=== PATIENT | male | born 1980 | race Caucasian/White ===

== ENCOUNTER 2023-12-31 11:59 | Emergency (ER) | payer SELFPAY ==
--- NOTE | ~2023-12-31 | XR_ITS ---
EXAMINATION: XR chest 2V 12/31/2023 13:00 INDICATION: Left arm pain PROCEDURE: 2 view chest COMPARISON: 09/12/2017 FINDINGS: The lungs are clear. The cardiomediastinal silhouette is within normal limits. There are no pleural effusions. There is no pneumothorax suspected. There is a prominent left nipple shadow. IMPRESSION: 1: NO ACUTE CARDIOPULMONARY DISEASE. Reviewed, dictated and finalized at location B.
[2023-12-31 12:13] VITALS: BP 117/83; PULSE 88; RESP 16; TEMP 36.4; O2SAT 100
--- NOTE | 2023-12-31 13:02 | ED.SKABFB ---
HPI - Skin/Abscess/Foreign Bdy General Chief complaint: Skin/Abscess/Foreign Body Stated complaint: spider bite /shortness of breath Time Seen by Provider: 12/31/23 12:28 History of Present Illness HPI narrative: 43-year-old male presents to the emergency room for multiple medical problems. Patient states 3 days ago he was rehabbing his an abandoned house, who was exposed to dust he, began developing shortness of breath. Patient also states he developed suspected skin infection to his left middle finger. Patient states that he thinks he might be a spider bite. Patient denies seeing a spider bite him, or a spider in the area. Related Data Allergies Allergy/AdvReac Type Severity Reaction Status Date / Time No Known Allergies Allergy Verified 12/31/23 12:27 Review of Systems Review of Systems: ROS unremarkable except for noted in HPI Exam Narrative: GENERAL: Well-appearing, well-nourished, no physical limitations, and in no acute distress. HEAD: Normocephalic, atraumatic. EYES: Conjunctivae normal, PERRLA and EOMI. CHEST: Clear to auscultation. No respiratory distress. No wheezes rales or rhonchi. HEART: Regular rate and rhythm. No murmur heard. Normal peripheral pulses. ABDOMEN: Soft, nontender, nondistended, normal active bowel sounds. EXTREMITIES: Normal range of motion. No edema. No clubbing or cyanosis SKIN: left middle finger: ulceration to medial side with surrounding erythema and STS NEURO: No focal deficits. Alert and oriented x3. MAEW. CN's II-XI intact bilaterally, normal gait PSYCH: Cooperative. Normal mood and affect. Course Vital Signs Vital signs: Vital Signs Temperature 36.4 C L 12/31/23 12:13 Pulse Rate 88 12/31/23 12:13 Respiratory Rate 16 12/31/23 12:13 Blood Pressure 117/83 12/31/23 12:13 Pulse Oximetry 100 12/31/23 12:13 Oxygen Delivery Room Air 12/31/23 12:13 Temperature 36.4 C L 12/31/23 12:13 Pulse Rate 88 12/31/23 12:13 Respiratory Rate 16 12/31/23 12:13 Blood Pressure 117/83 12/31/23 12:13 Pulse Oximetry 100 12/31/23 12:13 Oxygen Delivery Room Air 12/31/23 12:13 Discharge Plan Discharge Clinical Impression: Abscess of skin or subcutaneous tissue, Breath shortness Patient Disposition: Home, Self-Care Condition: Stable Instructions: Antibiotic Form, Abscess (ED) Prescriptions: New clindamycin HCl 300 mg capsule 300 mg PO TID Qty: 21 0RF albuterol sulfate 90 mcg/actuation HFA aerosol inhaler 1 inh inhalation QID Qty: 8.5 0RF Follow-up/Referrals: PHYSICIAN,BINDER STRIPPER MACHINE [Non-Staff] - Time of Disposition: 13:27
[2023-12-31] MEDS: NAPROXEN 500 MG TABLET PO (13:46)
[2023-12-31 13:48] VITALS: BP 134/76; PULSE 76; RESP 18; O2SAT 98
== END 2023-12-31 13:50 | disposition home or self-care (01) ==
PROVIDERS: Emergency Provider Nurse Practitioner Family
DX: R06.02 Shortness of breath (principal); L02.512 Cutaneous abscess of left hand
CPT/HCPCS: 71046; 99283; A9270

== ENCOUNTER 2025-05-06 08:33 | Emergency (ER) | payer SELFPAY ==
--- OUTSIDE RECORDS SUMMARY | 2025-05-03 05:00 | XMS_ITS ---
Author Organization Count includes the [facility] Address [address] [place] [address] Care Team Providers Care Supervisor Records Change Name Role Phone Rosette Yobani Primary Care Provider [phone] Carmenza Cavanaugh Unavailable [phone] REASON FOR VISIT MRU aT Social History Tobacco Use: Social History Observation Description Date Details (start date - stop date) Current Smoker NA - NA PRAPARE Question Answer Notes Date Completed/Updated: 05/03/2025 What is your current housing situation? I have h ousing Are you worried about losing your housing? No What is the highest level of school that you have finished? 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 Check all that apply Utilities Has lack of transportation k ept you from medical appointments, meetings, work or from getting things needed for daily living? Yes, it has kept me from medical appointments or from getting my medications,Yes, it has kept me from non-medical meetings, appointments, work, or getting things needed for daily living How often do you see or talk to people that you care about and feel close to? (For example: talking to friends on the phone, visiting friends or family, going to protestant or club meetings) More than 5 times a week How stressed are you? Stress is when someone feels tense, nervous, anxious, or can\t sleep at night because their mind is troubled Quite a bit In the past year have you sp ent more than 2 nights in a row in a half-way, jail, mcfp center, or juvenile correctional facility? No Are you a refugee? I choose not to answer this q uestion What country are you from? I choose not to answe r this question Do you feel physically and e motionally safe where you currently live? Yes In the past year, have you b een afraid of your partner or ex-partner? No PRAPARE Score: 8 Enabling Services Provided? Yes Please specify Case Management Assessment First Visit Tobacco Control (Standard) Question Answer Notes Tobacco use: Current smoker How often do you smoke cigarettes? Every day How many cigarettes a day do you smoke? 11-20 Problems Problem Type SNOMED Code ICD Code Onset Dates Problem Status W/U Status Risk Notes Problem Substance abuse (0124260433) Substance abuse (F19.10) Active confirmed Encounters Encounter Location Date Provider Diagnosis [facility] [address] [place] [address] 05/03/2025 Carmenza Cavanaugh Substance abuse F19.10 Assessments Encounter Date Diagnosis (ICD Code) Assessment Notes Treatment Notes Treatment Clinical Notes Section Notes 05/03/2025 Substance abuse (ICD-10 - F19.10) 05/03/2025 Other Clinician met w ith client to assess needs for residential services. Clinician gathered information regarding historical presentation of mental health and substance use symptoms including withdrawal, HIV Risk assessment, psychiatric hospitalization history and presenting concern. Clinician conducted PHQ9 and CSSRS assessments as well as social drivers of health screening for the purposes of identifying additional service needs. Plan Of Treatment Treatment Notes Assessment Notes Other Clinician met with keyur romero to assess needs for residential services. Clinician gathered information regarding historical presentation of mental health and substance use symptoms including withdrawal, HIV Risk assessment, psychiatric hospitalization history and presenting concern. Clinician conducted PHQ9 and CSSRS assessments as well as social drivers of health screening for the purposes of identifying additional service needs. Next Appt Details Follow Up: prn, Reason: Provider Name:Yobani castano, 05/06/2025 02:00:00 PM, [address], [place], [address], Progress Notes * Isaac BARBADOB: [birth year] (44 yo M)Acc No.[id number]:05/03/2025 UNLOCKED PROGRESS NOTE Patient: Isaac KRAMER Provider: Nicole Cavanaugh :1980 A ge:44 Y S ex:Male Date:05/03/2025 Address:[address] [id number] Pcp:Yobnai Dinero Structured Data:Is there a n taco you would prefer we call you? (Nombre que prefiere usar) : No Subjective: * Chief Complaints: * 1 . MRU aTBC. * HPI: P sychiatric Assessment - Current Symptoms: Primary concern today A dmitting today for [facility] day [facility]. O [place] of Mental Health Symptoms C nick reported he has been on ADHD medication but no longer takes this medication. Client is unsure if he has experienced other mental health concerns . H istory of Psychiatric Hospitalizations N one reported at this time . H istory of Psychiatric and Behavioral Health Treatment C nick reported he used to take medication for ADHD, but he no longer takes the medication . S ubstance Use: Current Use Patterns C nick reported he is using substances 2-3 times a day. P rimary Substance Used M eth and marajuana. H istory of substance use C nick reported he has been using substances every day for abotu 8 years. H x of Withdrawal C nick reported he thinks he felt symptoms of withdrawal the most recent time he stopped using - reported experiencing some depressive symptoms, stomach aches, and headaches. A ssessment of Social Determinants of Health::: Has A PRAPARE Been Completed In The Past Year? H as a PRAPARE Been Completed In The Past Year? Y es, W as It Completed Today Using [email or web address]? Y es.? a TBC For Substance Use Services: Who Is Your Primary Care Provider? D o You Have A Primary Care Provider? N o, D ate of last physical exam . D o You Have A Psychiatric Provider? D o You Have A Psychiatric Provider? N o. D o You Have Any Other Professional Supports? D o You Have Any Other Professional Supports N o. C onsent Forms Completed?Consent Forms N one Needed at this time. D epression Screening: PHQ-9 L ittle interest or pleasure in doing things S everal days, F eeling down, depressed, or hopeless N ot at all, T rouble falling or staying asleep, or sleeping too much M ore than half the days, F eeling tired or having little energy M ore than half the days, P oor appetite or overeating M ore than half the days,?Feeling bad about yourself or that you are a failure, or have let yourself or your family down More than half the days, T rouble concentrating on things, such as reading the newspaper or watching television M ore than half the days, M oving or speaking so slowly that other people could have noticed; or the opposite, being so fidgety or restless that you have been moving around a lot more than usual M ore than half the days, T houghts that you would be better off or of hurting yourself in some way M ore than half the days (Consider Suicide Assessment Risk).?Intervention D epression Screening Findings P ositive, F ollow-Up for Depression Patient is admitted to a [facility] unit where their mental health is monitored - unit nursing staff have access to this encounter note. S creening: [place] Suicide Severity Rating Scale (LF) D o you want to initiate with S creener form, 1 . Wish to be : Have you wished you were or wished you could go to sleep and not wake up? Y es, 2 . Suicidal Thoughts: Have you actually had any thoughts of killing yourself? N o, 6 . Suicide Behavior Question: Have you ever done anything,started to do anything, or prepared to end your life? N o, I nterpretation: M oderate Risk. C SSRS Interpretation and Follow Up Plan: CSSRS Interpretation and Follow Up Plan C SSRS Screen documented using SF Y es, R isk Disposition from SF M oderate - Follow Up Plan required, F ollow Up Plan M oderate/High: Patient risk further assessed by Behavioral Health GOLF BALL MARKER or Clinician, no warm hand off needed at this time Client is admitted to the CRU unit where they will be routinely screened for SI and risk., T imeframe of Screening Marcelle anderson. * Medical History: * Social History: S ocial Determinants: Nicole Hunter ate Completed/Updated: 07/03/2024, W hat is your current housing situation? I have housing, A re you worried about losing your housing? N o, W hat is the highest level of school that you have finished? 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 Check all that apply U tilities, H as lack of transportation kept you from medical appointments, meetings, work or from getting things needed for daily living? Y es, it has kept me from medical appointments or from getting my medications,Yes, it has kept me from non-medical meetings, appointments, work, or getting things needed for daily living, H ow often do you see or talk to people that you care about and feel close to? (For example: talking to friends on the phone, visiting friends or family, going to protestant or club meetings) M ore than 5 times a week, H ow stressed are you? Stress is when someone feels tense, nervous, anxious, or can\t sleep at night because their mind is troubled Q uite a bit, I n the past year have you spent more than 2 nights in a row in a half-way, jail, mcfp center, or juvenile correctional facility? N o, A re you a refugee? I choose not to answer this question, W hat country are you from? I choose not to answer this question, D o you feel physically and emotionally safe where you currently live? Yes, I n the past year, have you been afraid of your partner or ex-partner? N o, P RAPARE Score: 8 , E nabling Services Provided? Y es, P lease specify C ase Management Assessment First Visit. T obacco Use: T obacco Control (Standard) T obacco use: C urrent smoker, H ow often do you smoke cigarettes? E very day, H ow many cigarettes a day do you smoke? 1 -20. Objective: * Vitals: * Examination: M ental Status Exam: ATTENTION AND CONCENTRATION N o deficits. APPEARANCE A ppropriate. ATTITUDE AND BEHAVIOR C ooperative. EYE CONTACT G ood. AFFECT C ongruent with reported mood. MOOD E uthymic. INSIGHT F air. JUDGMENT F air. Assessment: * Assessment: 1. S ubstance abuse - F19.10 (Primary) Plan: * Treatment: * Procedure Codes: 9 0791 PSYCH DIAGNOSTIC EVALUATION, Modifiers: AJ , [facility] Service * Preventive Medicine: Counseling: S MOKING: Nicole currie counselled on the dangers of tobacco use and urged to quit. 07/03/2024 .. * Follow Up: p rn * * Electronic signature of Chriss Cavanaugh on 05/06/2025 at 08:36 AM VEGETABLE CUTTER Sign off status: Pending * Provider: Nicole Cavanaugh Date: 07/03/2024 Generated for Carlie oliveira/Jose/Donald on: 07/06/2024 08:36 AM VEGETABLE CUTTER History and Physical Notes * HPI (History of Present Illness) Category Sub-Category Detail Notes Category Not es Depression Screening PHQ-9 Little inte rest or pleasure in doing things: Several days Feeling down, depressed, or hopeless: No t at all Trouble falling or staying a sleep, or sleeping too much: More than half the days Feeling tired or having little energy: M ore than half the days Poor appetite or overeating: More than h fdc the days Feeling bad about yourself o r that you are a failure, or have let yourself or your family down: More than half the days Trouble concentrating on thi ngs, such as reading the newspaper or watching television: More than half the days Moving or speaking so slowly that other people could have noticed; or the opposite, being so fidgety or restless that you have been moving around a lot more than usual: More than half the days Thoughts that you would be b shilo off or of hurting yourself in some way: More than half the days (Consider Suicide Assessment Risk) Intervention Depression Screening Findings: P ositive Follow-Up for Depression: Kamari berrios is admitted to a [facility] unit where their mental health is monitored - unit nursing staff have access to this encounter note Psychiatric Assessment - Current Symptoms Primary concern today Admitting today for [facility] 28 day program Overview of Mental Health Symptoms Clien t reported he has been on ADHD medication but no longer takes this medication. Client is unsure if he has experienced other mental health concerns History of Psychiatric Hospitalizations None reported at this time History of Psychiatric and B ehavioral Health Treatment Client reported he used to take medicati on for ADHD, but he no longer takes the medication Substance Use History of substance use Client reported he has been using substances every day for abotu 8 years Hx of Withdrawal Client reported he t hinks he felt symptoms of withdrawal the most recent time he stopped using - reported experiencing some depressive symptoms, stomach aches, and headaches Primary Substance Used Meth and marajuan a Current Use Patterns Client reported he is using substances 2-3 times a day Screening [place] Suicide Sev erity Rating Scale (LF) Do you want to initiate with: Screener form 1. Wish to be : Have you wished you were or wished you could go to sleep and not wake up?: Yes 2. Suicidal Thoughts: Have you actually had any thoughts of killing yourself?: No 6. Suicide Behavior Question: Have you ever done anything,started to do anything, or prepared to end your life?: No Interpretation:: Moderate Risk Assessment of Social Determinants of Health:: Has A PRAPARE Been Completed In The Past Year? Has a PRAPARE Been Completed In The Past Year?: Yes Was It Completed Today Using SmartForm?: Yes aT For Substance Use Services Who Is Your Primary Care Provider? Do You Have A Primary Care Provider?: No Date of last physical exam: Do You Have A Psychiatric Provider? Do You Have A Psychiatric Provider?: No Do You Have Any Other Profes sional Supports? Do You Have Any Other Professional Supports: No Consent Forms Completed Consent Forms: None Need ed at this time CSSRS Interpretation and Follow Up Plan CSSRS Interpretation and Follow Up Plan CSSRS Screen documented using SF: Yes Risk Disposition from SF: Mo derate - Follow Up Plan required Follow Up Plan: Moderate/Hig h: Patient risk further assessed by Behavioral Health GOLF BALL MARKER or Clinician, no warm hand off needed at this time Client is admitted to the CRU unit where they will be routinely screened for SI and risk. Timeframe of Screening: Today Examination Category Sub-Category Detail Notes Category Not es Mental Status Exam ATTENTION AND CONCENTRATION No defi cits APPEARANCE Appropriate ATTITUDE AND BEHAVIOR Cooperative EYE CONTACT Good AFFECT Congruent with repor anne marie mood MOOD Euthymic INSIGHT Fair JUDGMENT Fair
--- OUTSIDE RECORDS SUMMARY | 2025-05-05 08:40 | XMS_ITS ---
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 and Pre vention Guidelines: * S marcos Zhou ast Done N ext Due A ction Taken N ONCOMPLIANT H IV screening - 1 07/05/2024 - - * Preventive Medicine: Counseling: S CARMEL: Nicole currie counselled on the dangers of tobacco use and urged to quit. 1 07/05/2024 .. * Follow Up: 2 Weeks * * Electronic signature of Vdial Carroll on 05/06/2025 at 08:36 AM REFUSE COLLECTOR Sign off status: Pending * Provider: Monica Carroll APN Date: 07/05/2024 Generated for Carlie oliveira/Jose/Beverlyransmitting on: 07/06/2024 08:36 AM REFUSE COLLECTOR History and Physical Notes * HPI (History of Present Illness) Category Sub-Category Detail Notes Category Not es Depression Screening PHQ-9 Little inte rest or pleasure in doing things: Several days Feeling down, depressed, or hopeless: Mo re than half the days Trouble falling or staying asleep, or sl eeping too much: Several days Feeling tired or having little energy: S everal days Poor appetite or overeating: More than h myrna the days Feeling bad about yourself o r that you are a failure, or have let yourself or your family down: Several days Trouble concentrating on thi ngs, such as reading the newspaper or watching television: Several days Moving or speaking so slowly that other people could have noticed; or the opposite, being so fidgety or restless that you have been moving around a lot more than usual: Several days Thoughts that you would be b shilo off or of hurting yourself in some way: Several days (Consider Suicide Assessment Risk) Total Score: 11 Interpretation: Moderate Depression Intervention Depression Screening Findings: P ositive Follow-Up for Depression: No Referral necessary, patient involved in behavioral health treatment . ROXANA-7 Screening 1. Feeling nervous, anxious, or on edg e :, Several days-1 2. Not being able to stop or control wor rying :, Several days-1 3. Worrying too much about different thi ngs :, Several days-1 4. Trouble sleeping/relaxing :, Several days-1 5. Being so restless that it is hard to sit still :, Several days-1 6. Becoming easily annoyed or irritable :, Several days-1 7. Feeling afraid, as if something awful might happen :, Several days-1 ROXANA-7 Score Total score:: 7 Interpretation: 5-9: Mild Anxiety Screening [place] Suicide Sev erity Rating Scale (LF) Do [...] prepared to end your life?: No Interpretation:: Low Risk Mood Disorder Questionnaire 22- Questions Please answer each question to the best of your ability.: Has there ever been a time period when you were not your usual self and... You felt so good or hyper th at other people thought you were not your normal self or you were so hyper that you got into trouble?: No . You were so irritable that y ou shouted at people or started fights or arguments?: No . You got much less sleep than usual and found that you didn't really miss it?: Yes . You felt much more self-confident than u sual?: No . You were more talkative or spoke much fa ster than usual?: No . Thoughts raced through your head or you couldn't slow your mind down?: No . You were so easily distracte d by things around you that you had trouble concentrating or staying on track?: No . You had more energy than usual?: No . You were more active or did many more th ings than usual?: No . You were more social or outg oing than usual, for example, you telephoned friends in the middle of the night?: No . You were more interested in sex than usu al?: No . You did things that were usu al for you or that other people might have thought were excessive, foolish, or risky?: No . Spending money got you or your family in trouble?: No . If you checked YES to more t leal one of the above, have several of these ever happened during the same period of time?: No . How much of a problem did an y of these cause you - like being unable to work; having family, money or legal troubles; getting into arguments or fights?: No problems . Preventative Health and Wellness follow-up . CSSRS Interpretation and Follow Up Plan CSSRS Interpretation and Follow Up Plan CSSRS Screen documented using SF: Yes Risk Disposition from SF: Low - No Follo w Up Plan Required Follow Up Plan: No Follow Up Plan requir ed at this time. Timeframe of Screening: Today Examination Category Sub-Category Detail Notes Category Not es Mental Status Exam SENSORIUM AND COGNITION Alert , Oriented to Person, Oriented to Place, Oriented to Time, Oriented to Situation ATTENTION AND CONCENTRATION No deficits APPEARANCE Phone interview - un able to determine appearance. ATTITUDE AND BEHAVIOR Cooperative, Aircraft Accessories Mechanic tive MEMORY Immediate, Recent, R emote EYE CONTACT Phone interview AFFECT Phone interview-unab le to assess MOOD Euthymic SPEECH QUANTITY Appropriate SPEECH QUALITY Appropriate volume THOUGHT PROCESS Coherent and goal di rected THOUGHT CONTENT Appropriate - WNL, N o evidence of delusional content MOTOR ACTIVITY Phone interview SUICIDAL IDEATION Denies suicidal idea tion HOMICIDAL IDEATION Denies homicidal michaela ation HALLUCINATIONS Denies hallucination s INSIGHT Fair JUDGMENT Fair LANGUAGE Appropriate- WNL Consultation Request Notes Referral Date Referring Provider Referred Provider Not es 05/05/2025 Virgie Carroll , Therapy- ELY an d depression
--- OUTSIDE RECORDS SUMMARY | 2025-05-06 08:36 | XMS_ITS | Patient Health Record ---
Author Organization [facility] Address [address] [place] [address] Care Team Providers Care Dehydrogenation Supervisor Name Role Phone Yobani Dinero Primary Care Provider Prem Tillman Unavailable [phone] MaoCarmenza moreno Unavailable [phone] GlenVirgie galvez Unavailable [phone] Allergies No Known Allergies Results Component Value Reference Range Notes Breathalyzer Reviewed date:05/03/2025 03:30:27 PM Interpretation: Performing Lab: Notes/Report: LACEY 0.000 QuantiFERON-TB Gold Plus ([id number]) (Not yet reviewed by provider) Interpretation: Performing Lab:[facility] [place], [address], Phone - [phone], Director - Geeta Notes/Report: QuantiFERON Incubation Incubation performed. QuantiFERON-TB Gold Plus Negative Negative No response to M tuberculosis antigens detected. Infection with M tuberculosis is unlikely, but high risk individuals should be considered for additional testing (ATS/IDSA/CDC Clinical Practice Guidelines, 2017). The reference range is an Antigen minus Nil result of <0.35 IU/mL. Chemiluminescence immunoassay methodology QuantiFERON Criteria QuantiFERON-TB Gold Plus is a qualitative indirect test for M tuberculosis infection (including disease) and is intended for use in conjunction with risk assessment, radiography, and other medical and diagnostic evaluations. The QuantiFERON-TB Gold Plus result is determined by subtracting the Nil value from either TB antigen (Ag) value. The Mitogen tube serves as a control for the test. QuantiFERON TB1 Ag Value 0.04 QuantiFERON TB2 Ag Value 0.03 QuantiFERON Nil Value 0.04 QuantiFERON Mitogen Value >10.00 CMP 14 Comprehensive Metabol ic Panel* (Not yet reviewed by provider) Interpretation: Performing Lab:[facility], [address], Phone - [phone], Director - Geeta Notes/Report: Glucose 96 70-99 mg/dL BUN 22 6-24 mg/dL Creatinine 1.07 0.76-1.27 mg/dL eGFR 88 >59 mL/min/1.73 BUN/Creatinine Ratio 21 9-20 Sodium 141 134-144 mmol/L Potassium 4.4 3.5-5.2 mmol/L Chloride 104 96-106 mmol/L Carbon Dioxide, Total 23 20-29 mmol/L Calcium 9.5 8.7-10.2 mg/dL Protein, Total 6.6 6.0-8.5 g/dL Albumin 4.1 4.1-5.1 g/dL Globulin, Total 2.5 1.5-4.5 g/dL Bilirubin, Total 0.4 0.0-1.2 mg/dL Alkaline Phosphatase 82 47-123 IU/L AST (SGOT) 29 0-40 IU/L ALT (SGPT) 24 0-44 IU/L CBC With Differential/Platel et* (Not yet reviewed by provider) Interpretation: Performing Lab:[facility] [place], [address], Phone - [phone], Director - Geeta Notes/Report: WBC 8.4 3.4-10.8 x10E3/uL RBC 4.83 4.14-5.80 x10E6/uL Hemoglobin 14.1 13.0-17.7 g/dL Hematocrit 44.4 37.5-51.0 % MCV 92 79-97 fL MCH 29.2 26.6-33.0 pg MCHC 31.8 31.5-35.7 g/dL RDW 12.4 11.6-15.4 % Platelets 353 150-450 x10E3/uL Neutrophils 58 Not Estab. % Lymphs 29 Not Estab. % Monocytes 9 Not Estab. % Eos 3 Not Estab. % Basos 1 Not Estab. % Neutrophils (Absolute) 4.8 1.4-7.0 x10E3/uL Lymphs (Absolute) 2.4 0.7-3.1 x10E3/uL Monocytes(Absolute) 0.8 0.1-0.9 x10E3/uL Eos (Absolute) 0.3 0.0-0.4 x10E3/uL Baso (Absolute) 0.1 0.0-0.2 x10E3/uL Immature Granulocytes 0 Not Estab. % Immature Grans (Abs) 0.0 0.0-0.1 x10E3/uL 14 Panel Urine Drug Screen Reviewed date:05/03/2025 03:30:27 PM Interpretation: Performing Lab: Notes/Report: THC pos SIRI neg MOP (OPI) neg AMP pos MET pos BAR neg BZO neg MDMA neg MTD neg OXY neg PCP neg BUP neg TCA neg FTY neg Reason For Referral Reason Therapy- ELY and dep ression Diagnosis 1 Depression (F32.9) Referral Organization [facility] Referring Provider First Name Virgie Referring Provider Last Name Glen Referring Provider Speciality Psychiatry [facility] Priority Routine Medications Medication SIG (Take, Route, Frequency, Duration) Notes Start Date End Date Status Multi Vitamin - 1 tablet Orally Once a day; Duration: 30 days 05/03/2025 Not-Taking Nicotine Polacrilex 4 MG 1 lozenge as needed for nicotine cravings Mouth/Throat Up to once per hour (maximum of 15 lozenges per day); Duration: 7 days 05/03/2025 Not-Taking Sertraline HCl 25 MG 1 tablet Orally Once a day; Duration: 15 days Patient in MRU 05/05/2025 Active hydrOXYzine Pamoate 25 MG 1-2 capsules Orally [...] a day; Duration: 30 days 05/03/2025 Active Social History Tobacco Use: Social History [...] degree 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 Stress is when someone feels tense, nervous, anxious, or can\t sleep at night because their mind is troubled Quite a bit In the past year have you sp ent more than 2 nights in a row in a senior living, penitentiary, [place] [facility], or juvenile correctional facility? No Are [...] methamphetam ine use for about 8 years Drug use: Daily methamphetam ine use for about 8 years Problems Problem Type SNOMED Code ICD Code Onset Dates Problem Status W/U Status Risk Notes Problem Depression (719608234) Depression (F32.9) Active confirmed Problem Substance abuse (0785510721) Substance abuse (F19.10) Active confirmed Problem Cannabis dependence (38117057) Marijuana dependence (F12.20) Active confirmed Problem Nicotine dependence (54566767) Nicotine dependence (F17.200) Active confirmed Problem History of methamphetamine use (95812206535630972 ) Methamphetamine use (F15.10) Active confirmed Problem Physical examination, complete (41167149) Adult general medical examination (Z00.00) Active confirmed Vital Signs Heart Rate 85 /min 05/04/2025 Temperature 97.7 degrees Fahrenheit 05/03/2025 Respiratory Rate 18 /min 05/04/2025 Oximetry 99 % 05/04/2025 Blood pressure diastolic 76 mm Hg 05/04/2025 Height 71 in 05/04/2025 Blood pressure systolic 110 mm Hg 05/04/2025 Weight 155.6 lbs 05/04/2025 BMI 21.7 kg/m2 05/04/2025 Encounters Encounter Location Date Provider Diagnosis Counts Include [facility] [address] [place] [address] 05/03/2025 Carmenza Camarenaan Substance abuse F19. [address] [place] [address] 05/05/2025 Virgie Harpere Depression F32.9 Counts Include [facility] [address] [place] [address] 05/03/2025 Yobani Dinero Adult general medica l examination Z00.00 ; Methamphetamine use F15.10 ; Marijuana dependence F12.20 and Nicotine dependence F17.200 Counts Include [address] [facility] [address] [place] [address] 05/04/2025 Marcelakasey Primo Methamphetamine use F15.10 Assessments Encounter Date Diagnosis (ICD Code) Assessment Notes Treatment Notes Treatment Clinical Notes Section Notes 05/03/2025 Methamphetamine use (ICD-10 - F15.10) 05/03/2025 Adult general medical examination (ICD-10 - Z00.00) Admit to the [facility] and initiate standing/protocol orders: The following PRN medications may be self-administered by patients under the supervision of approved staff or administered by nursing staff: Ibuprofen 200mg, 2-4 tablets by mouth (with food) every 6 hours as needed for pain (unless on lithium). (NOTE: Ibuprofen and acetaminophen may be given together, but alternating is recommended for continuous pain relief. Guaifenesin 400 mg, 1 tablet by mouth every four hours as needed for cough and chest congestion (take with large glass of water). Loratadine 10 mg, 1 tablet by mouth daily as needed for allergies, watery itchy eyes, or sinus drainage. Throat Lozenges, up to 4 tablets by mouth every three to four hours as needed for sore throat. Antacid tablets, 1-2 tablets by mouth every one to two hours as needed for indigestion or heart burn. If the client prefers liquid, could use: Liquid Antacid : 1 ounce by mouth up to four times daily as needed for indigestion or heartburn Omeprazole 20mg, 1 capsule by mouth once daily for 14 days for frequent heartburn (frequent heartburn is more than 2 episodes per week). Do not exceed 14 days. Do not give to client already taking a proton-pump inhibitor: esomeprazole (Nexium), lansoprazole (Prevacid), pantoprazole (Protonix), rabeprazole (Aciphex), dexlansoprazole (Dexilant) Zofran ODT disintegrating (under the tongue) 4 mg, 1-2 tablets every 8 hours as needed for nausea/vomiting. Milk of Magnesia (MOM): 1 ounce (30 milliliters) by mouth every day as needed for constipation. OR Miralax: Stir and fully dissolve 17 grams (1 packet or 1 capful to measured line) in any 4 to 8 ounces of beverage then drink once daily for constipation. Do not use for more than 7 days. OR Docusate 100 mg, 1 capsule twice daily as needed for constipation Hydrocortisone 1% Cream, apply topically (to the skin) to the affected area up to three times daily as needed for itching or inflammation (avoid eyes and genitals). 2% Antifungal Cream, apply topically (to the skin) as directed as needed to affected areas for athlete's foot or jock itch. Triple Antibiotic Ointment, apply topically (to the skin) up to three times daily as needed for minor cuts and scrapes. Carmex or Chapstick, apply topically (to the skin) as needed for chapped lips and skin. Orajel, apply to affected areas as needed for mouth or tooth pain. Lubricating Eye Drops, instill 1-2 drops to the affected eye(s) as needed for dry/irritated eye(s). Hemorrhoid medications, apply to affected area according to directions as needed for hemorrhoid discomfort and itch. Nix (Permethrin 1%) cream 2 ounces, apply topically (to the skin) as directed as needed for head lice. Sunscreen 30 SPF, Apply to exposed skin prior to exposure to sun. The following PRN medications must be approved by nursing staff before self-administration by patients: Diphenhydramine 25 mg, 2 tablets by mouth every 4 hours as needed for allergic reaction or itchy rash. Caution: Do not use hydroxyzine within 4 hours of diphenhydramine and vice versa. Loperamide 2 mg capsules, may give two capsules by mouth for the initial dose, followed by one capsule up to 3 times a day as needed for diarrhea. Acetaminophen 500 mg, 1 - 2 tablets by mouth every six hours as needed for pain. (NOTE: Ibuprofen and acetaminophen may be given together, but alternating is recommended for continuous pain relief). Oxygen-May administer oxygen 2L/min via nasal cannula if O2 saturation is less than 92%, AND client complains of shortness of breath. Target O2 saturation is 94-98%. Caution: Remember too much oxygen can be detrimental to a client with COPD. Oxygen is a drug and should be delivered by trained staff only. Nurses may remove superficial splinters and sutures from skin lacerations. May apply gauze or bandages to any weeping wounds. Contact nursing if there is pus, a foul odor, increased pain/redness/swellin g, or if soaking through bandages. 05/03/2025 Substance abuse (ICD-10 - F19.10) 05/04/2025 Methamphetamine use (ICD-10 - F15.10) Daily methamphetamine use for approximately eight years. Last use was two days ago. Patient denied significant cravings since last use. Patient feels different and reports some sadness. Patient prefers not to start medication-assisted treatment, stating substance use does not affect his ability to function. Patient is currently in drug court and attending outpatient group sessions. Patient started using methamphetamine on the streets. - Discussed options for medication-assisted treatment, including Vivitrol and Suboxone. - Patient opted to continue with outpatient group sessions and drug court participation. - Provided education on risks and benefits of medication-assisted treatment. - Encouraged ongoing engagement with recovery groups. 05/05/2025 Depression (ICD-10 - F32.9) Start Sertraline. [...] 2 weeks for recheck, sooner if needed. 05/03/2025 Marijuana dependence (ICD-10 - F12.20) 05/03/2025 Nicotine dependence (ICD-10 - F17.200) 05/03/2025 Other Clinician met w ith client to assess needs for residential services. Clinician gathered information regarding historical presentation of mental health and substance use symptoms including withdrawal, HIV Risk assessment, psychiatric hospitalization history and presenting concern. Clinician conducted PHQ9 and CSSRS assessments as well as social drivers of health screening for the purposes of identifying additional service needs. 05/05/2025 Other The plan was discussed with [...] were educated about the importance of medication adherence/compliance . Patient/guardian was advised to contact provider if [...] to seek immediate help by calling the [facility] crisis line, 911, or going to the [...] or be administered own oral medication per [facility] Protocols. Provided informed consent with understanding of [...] ongoing services. Follow up in 2 weeks 05/03/2025 Other Continue treatment as recommended by [facility]'s [facility] staff. Encouraged patient to obtain routine medical care with patient's own primary care provider or establish as a patient at [facility] if no current primary care provider. 05/04/2025 Other Patient may self-administ er their own medications or may self-administ er their own oral medications per [facility] Protocol. 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
[2025-05-06 08:47] VITALS: BP 115/82; PULSE 59; RESP 16; O2SAT 100
[2025-05-06 08:50] VITALS: BP 124/81; PULSE 60
[2025-05-06 08:51] VITALS: BP 107/84; BP 125/106; PULSE 63; PULSE 72
[2025-05-06 08:59] VITALS: BP 107/64; PULSE 68; RESP 16; O2SAT 100
[2025-05-06 09:01] VITALS: BP 115/86; PULSE 67; RESP 16; O2SAT 100
[2025-05-06 09:10] LABS: Hematocrit 50.6 % (42.0-52.0); Hemoglobin 16.3 g/dL (14.0-18.0); Immature Granulocyte Percent A 0.5 % (0-0.5); Lymphocytes Absolute Auto 1.57 K/mm3 (0.9-3.2); Mean Corpuscular HGB Conc 32.2 g/dl (32-36); Mean Corpuscular Hemoglobin 28.8 pg (26-34); Mean Corpuscular Volume 89.6 fl (80-100); Nucleated Red Blood Cells Absolute Auto 0.000 K/mm3 (0.0-0.012); Nucleated Red Blood Cells Perc 0.0 % (0.0-0.2); Platelet Count Result 342 k/mm3 (150-375); Red Blood Count 5.65 M/mm3 (4.6-6.20); White Blood Count 12.5 K/mm3 (4.5-10.0)
[2025-05-06 09:11] LABS: Add Urine Microscopic? NO; Appearance Urine Clear (Clear); Glucose Urine UA Negative (Negative); Leukocyte Esterase Ur Negative LEU/UL (Negative); Nitrate Urine Negative (Negative); Specific Grav Ur 1.019 (1.001-1.035)
[2025-05-06 09:27] LABS: Alanine Aminotransferase 25 U/L (6-50); Albumin Level 4.7 g/dL (3.5-5.1); Alkaline Phosphatase 91 U/L (38-126); Anion Gap 8 mmol/L (4-12); Aspartate Amino Transferase 34 U/L (17-59); Bilirubin,Total 0.5 mg/dL (0.2-1.3); Blood Urea Nitrogen 16 mg/dL (9-20); Calcium 10.2 mg/dL (8.4-10.2); Carbon Dioxide 29 mmol/L (22-30); Chloride 100 mmol/L (98-107); Estimated CRCL calculation 104 ml/min; Estimated Glomerular Filt Rate > 60; Glucose 111 mg/dL (65-110); Lipase 60 U/L (23-300); Potassium 4.4 mmol/L (3.4-5.0); Sodium 137 mmol/L (137-145); Total Protein 8.8 g/dL (6.3-8.2)
[2025-05-06] MEDS: PANTOPRAZOLE SODIUM IV 40 MG VIAL IV PUSH (09:30)
[2025-05-06] MEDS: SODIUM CHLORIDE 0.9% IV 1,000 ML 999 ML IV CONT (09:30)
[2025-05-06] MEDS: ONDANSETRON INJ 4 MG/2 ML VIAL IV PUSH (09:30)
--- NOTE | 2025-05-06 10:27 | ED_ITS ---
HPI - General Adult General Chief complaint: Nausea/Vomiting/Diarrhea Stated complaint: sick, N/V/D Time Seen by Provider: 05/06/25 08:40 History of Present Illness HPI narrative: Patient is a 44-year-old male who presents ER with nausea vomiting. Ongoing for a couple of days. He reports the risks of red in his vomit today but he ate pasta with red sauce last night. No dark black stools. No diarrhea. No fevers or chills or sweats. Denies alcohol abuse. No NSAID use. No known sick contacts. Related Data Allergies Allergy/AdvReac Type Severity Reaction Status Date / Time No Known Allergies Allergy Verified 11/04/24 15:05 Review of Systems 2 Review of Systems: All systems reviewed & are unremarkable except as noted in HPI and below Constitutional: Constitutional: Reports no additional constitutional complaints ENT: Reports system reviewed and no additional complaints, except as documented Cardiovascular: Cardiovascular: Reports no additional cardiovascular complaints Respiratory: Respiratory: Reports no additional respiratory complaints Musculoskeletal: Musculoskeletal: Reports no additional musculoskeletal complaints Exam 2 Narrative: GENERAL: Well-appearing, well-nourished, and in no acute distress. HEAD: Normocephalic, atraumatic. EYES: PERRL and EOMI. ENT: Mucous membranes moist. NECK: Supple. CHEST: Clear to auscultation. No respiratory distress. HEART: Regular rate and rhythm. Normal peripheral pulses. ABDOMEN: Soft, nontender, nondistended. EXTREMITIES: Normal range of motion. No edema. SKIN: Warm, dry, no rash. NEURO: Alert and oriented x3. PSYCH: Normal mood and affect. Course Course Emergency Course: Prior to me making back to the room to inform the patient about his normal lab work so he could be discharged the patient eloped from the department without therapeutic reason. Patient had a full CV IV fluids, antiemetics, and Protonix Vital Signs Vital signs: Vital Signs Pulse Rate 59 L 05/06/25 08:47 Respiratory Rate 16 05/06/25 08:47 Blood Pressure 115/82 05/06/25 08:47 Pulse Oximetry 100 05/06/25 08:47 Oxygen Delivery Room Air 05/06/25 08:47 Pulse Rate 67 05/06/25 09:01 Respiratory Rate 16 05/06/25 09:01 Blood Pressure 115/86 05/06/25 09:01 Pulse Oximetry 100 05/06/25 09:01 Oxygen Delivery Room Air 05/06/25 08:47 Medical Decision Making Differential Diagnosis Differential Diagnosis: GERD, peptic ulcer disease, Alana-Carpenter tear, upper GI bleed of other etiology gastroenteritis Vital Signs Vital Signs: Vital Signs Pulse Rate 59 L 05/06/25 08:47 Respiratory Rate 16 05/06/25 08:47 Blood Pressure 115/82 05/06/25 08:47 Pulse Oximetry 100 05/06/25 08:47 Oxygen Delivery Room Air 05/06/25 08:47 Pulse Rate 67 05/06/25 09:01 Respiratory Rate 16 05/06/25 09:01 Blood Pressure 115/86 05/06/25 09:01 Pulse Oximetry 100 05/06/25 09:01 Oxygen Delivery Room Air 05/06/25 08:47 Lab Data Lab results reviewed: Yes I reviewed the patient's lab results. 05/06/25 08:57 05/06/25 08:57 Labs: Lab Results 05/06/25 Range/Units 08:57 WBC 12.5 H (4.5-10.0) K/mm3 RBC 5.65 (4.6-6.20) M/mm3 Hgb 16.3 (14.0-18.0) g/dL Hct 50.6 (42.0-52.0) % MCV 89.6 (80-100) fl MCH 28.8 (26-34) pg MCHC 32.2 (32-36) g/dl RDW 12.3 (11.5-14.5) % Plt Count 342 (150-375) k/mm3 MPV 9.2 (7.4-10.4) fl Immature Gran % (Auto) 0.5 (0-0.5) % Neut % (Auto) 80.6 H (45.5-73.1) % Lymph % (Auto) 12.6 L (18.3-44.2) % Glenn % (Auto) 4.8 (2.6-8.5) % Eos % (Auto) 0.8 (0-4.4) % Baso % (Auto) 0.7 (0.2-1.2) % Lymph # (Auto) 1.57 (0.9-3.2) K/mm3 Glenn # (Auto) 0.6 (0.1-0.6) K/mm3 Eos # (Auto) 0.1 (0-0.3) K/mm3 Baso # (Auto) 0.1 (0.0-0.1) K/mm3 Abs Immat Gran (auto) 0.06 H (0.00-0.031) K/mm3 Absolute Neuts (auto) 10.1 H (1.3-6.7) K/mm3 Absolute Nucleated RBC 0.000 (0.0-0.012) K/mm3 Nucleated RBC % 0.0 (0.0-0.2) % Sodium 137 (137-145) mmol/L Potassium 4.4 (3.4-5.0) mmol/L Chloride 100 (98-107) mmol/L Carbon Dioxide 29 (22-30) mmol/L Anion Gap 8 (4-12) mmol/L BUN 16 (9-20) mg/dL Creatinine 0.84 (0.7-1.3) mg/dL Estim Creat Clear Calc 104 ml/min Estimated GFR > 60 (59 - ) Glucose 111 H (65-110) mg/dL Calcium 10.2 (8.4-10.2) mg/dL Total Bilirubin 0.5 (0.2-1.3) mg/dL AST 34 (17-59) U/L ALT 25 (6-50) U/L Alkaline Phosphatase 91 (38-126) U/L Total Protein 8.8 H (6.3-8.2) g/dL Albumin 4.7 (3.5-5.1) g/dL Lipase 60 (23-300) U/L Urine Color Yellow (Yellow) Urine Appearance Clear (Clear) Urine pH 7.0 (5.0-9.0) Ur Specific [place] 1.019 (1.001-1.035) Urine Protein Negative (Negative) mg/dL Urine Glucose (UA) Negative (Negative) mg/dL Urine Ketones Negative (Negative) mg/dL Ur Blood (Man) Negative (Negative) Urine Nitrate Negative (Negative) Urine Bilirubin Negative (Negative) Urine Urobilinogen 0.2 (<2.0) mg/dL Leukocyte Esterase Rfl Negative (Negative) JORGE LUIS/UL Discharge Plan Discharge Clinical Impression: Nausea & vomiting Patient Disposition: Elopement After Seen by Prov Patient Language: Korean Prescriptions: No Action clindamycin HCl 300 mg capsule 300 mg PO TID Qty: 21 0RF albuterol sulfate 90 mcg/actuation HFA aerosol inhaler 1 inh inhalation QID Qty: 8.5 0RF naproxen 500 mg tablet 500 mg PO BID Qty: 14 0RF Follow-up/Referrals: PHYSICIAN,CLINICAL QUALITY ASSURANCE ASSOCIATE [Primary Care Provider, Internal Medicine]
--- NOTE | 2025-05-06 10:42 | PC.NURSE ---
Pts room entered by fisheries technical officer, pts gown was on the bed and personal belongings were gone and pt was unable to be located. Calvin KUMARI notified of pts elopement with IV. EDP Dr. Meier and ED clinic charge nurse notified.
== END 2025-05-06 10:44 | disposition left against medical advice (07) ==
PROVIDERS: Emergency Provider Emergency Medicine
DX: R11.2 Nausea with vomiting, unspecified (principal)
CPT/HCPCS: 36415; 80053; 81003; 83690; 85025; 96361; 96374; 96375; 99284; J2405; J2470; J7030